=== PATIENT | female | born 1970 | race Caucasian/White ===

== ENCOUNTER → 2025-04-28 | Outpatient (CLI) | payer MEDICARE, MEDICAID ==
[2025-04-28 13:41] LABS: PLATELET COUNT, AUTOMATED 238 10^3/uL (150-450)
[2025-04-28 14:09] LABS: LDH LACTATE DEHYDROGENASE 179.0 U/L (120-246)
[2025-04-28 14:10] LABS: ALT/SGPT 43.0 U/L (7.0-40); AST/SGOT 36.0 U/L (<34); CALCIUM LEVEL 9.5 MG/DL (8.5-10.1); CARBON DIOXIDE LEVEL 24.0 MMOL/L (20-31); CHLORIDE LEVEL 109.0 MMOL/L (98-107); CREATININE FOR GFR 0.92 MG/DL (0.55-1.30); GLOMERULAR FILTRATION RATE 73.1 (>51); IRON (FE) 82.0 UG/DL (50-170); MAGNESIUM LEVEL 1.8 MG/DL (1.8-2.4); POTASSIUM SERUM 4.0 MMOL/L (3.5-5.1); SODIUM LEVEL 146.0 MMOL/L (136-145)
[2025-04-28 14:11] LABS: PERCENT SATURATION 27.1 % (13.2-45.0); VITAMIN B12 LEVEL 418.0 PG/ML (211-911)
[2025-04-29 10:24] LABS: RBC FOLATE 562.0 NG/ML (280-791)
[2025-04-30 15:01] LABS: HOMOCYST(E)INE SERUM 10.9 umol/L (< or = 13.4)
== END ==
LOC: M WUC 09:44
PROVIDERS: ATTEND Nurse Practitioner Family
DX: R20.2 Paresthesia of skin (principal)

== ENCOUNTER → 2025-08-09 | Outpatient (CLI) | payer MEDICARE, MEDICAID ==
[2025-08-09 11:37] LABS: BASO # 0.1 10^3/uL (0.0-0.2); BASO % 0.6 % (0.0-1.0); EOS # 0.3 10^3/uL (0.0-0.5); EOS % 2.3 % (0.0-3.0); LYMPH # 2.7 10^3/uL (1.5-5.0); LYMPH % 21.0 % (24.0-44.0); MONO # 0.8 10^3/uL (0.0-0.8); MONO % 6.4 % (2.0-8.0); NEUTROPHILS # 8.8 10^3/uL (1.5-8.5); NEUTROPHILS % 69.5 % (36.0-66.0); PLATELET COUNT, AUTOMATED 280 10^3/uL (150-450)
[2025-08-09 12:09] LABS: ALT/SGPT 12 U/L (7.0-40); AST/SGOT 18 U/L (<34); CALCIUM LEVEL 8.3 MG/DL (8.5-10.1); CARBON DIOXIDE LEVEL 28 MMOL/L (20-31); CHLORIDE LEVEL 108 MMOL/L (98-107); CHOLESTEROL LEVEL 132 MG/DL (<200); CHOLESTEROL RISK RATIO 2.44 (<5); CREATININE FOR GFR 0.75 MG/DL (0.55-1.30); GLOMERULAR FILTRATION RATE > 90.0 (>51); LDL CHOLESTEROL 56.9 MG/DL (<100); MAGNESIUM LEVEL 2.1 MG/DL (1.8-2.4); NON-HDL-C 78.1 MG/DL; POTASSIUM SERUM 3.5 MMOL/L (3.5-5.1); SODIUM LEVEL 143 MMOL/L (136-145); TOTAL 25(OH) VITAMIN D 49.1 NG/ML (20.0-100.0); TRIGLYCERIDES LEVEL 106 MG/DL (<150); VITAMIN B12 LEVEL 456 PG/ML (211-911)
[2025-08-09 13:08] LABS: ESTIMATED AVERAGE GLUCOSE 108.0 MG/DL (60-110)
== END ==
LOC: M LAB 10:52
PROVIDERS: ATTEND Nurse Practitioner Family
DX: D51.9 Vitamin B12 deficiency anemia, unspecified (principal); I10 Essential (primary) hypertension; R73.03 Prediabetes; E55.9 Vitamin D deficiency, unspecified